=== PATIENT | female | born 2000 | race American Indian/Alaskan Native ===

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

== ENCOUNTER 2022-01-27 14:23 | Emergency (ER) | payer MEDICAID ==
[2022-01-27] MEDS ORDERED: Lidocaine 1% 10 ML MDV INJECT ONE (15:03)
[2022-01-27] MEDS ORDERED: Ketorolac 30 MG/ML SDV IM ONE (15:03)
== END 2022-01-27 16:40 | disposition home or self-care (01) ==
LOC: JD.ED 14:23
DX: L02.412 Cutaneous abscess of left axilla (principal)
CPT/HCPCS: 10060; 96372; 99282; J1885; 99283

== ENCOUNTER 2024-01-01 22:19 | Emergency (ER) | payer MEDICAID ==
[2024-01-01] MEDS: Sulfamethoxazole/Trimethoprim 800-160 MG Tab PO ONE (23:48)
== END 2024-01-02 00:03 | disposition home or self-care (01) ==
LOC: JD.ED 22:19
DX: L03.112 Cellulitis of left axilla (principal)
CPT/HCPCS: 99283; A9270-GY